=== PATIENT | female | born 1995 | race Caucasian/White ===

== ENCOUNTER 2019-05-10 13:15 | Emergency (ER) | payer BC ==
[2019-05-10 14:49] VITALS: BP 123/65
--- NOTE | 2019-05-10 15:11 | UC ---
Throat Pain/Nasal Addy HPI - HPI Summary HPI Summary: 23-year-old woman comes in with a chief complaint of 3 days of sinusitis symptoms. She's had some rhinorrhea and sinus pressure. Also feels like her ears are popping. She has used [id number]-[id number] oxymetazoline which did help some. No fevers or chills. Minimal sore throat. No cough or chest congestion. - History of Current Complaint Chief Complaint: UCRespiratory Stated Complaint: CONGESTION FEVER EARS Time Seen by Provider: 05/10/19 14:49 Hx Last Menstrual Period: uses depo, does not have reg periods. Pain Intensity: 0 - Allergies/Home Medications Allergies/Adverse Reactions: Allergies Allergy/AdvReac Type Severity Reaction Status Date / Time No Known Allergies Allergy Verified 05/10/19 14:41 PMH/Surg Hx/FS Hx/Imm Hx Previously Healthy: Yes - Surgical History Surgical History: Yes Surgery Procedure, Year, and Place: bilat inguinal hernia repair as a child. tosillectomy age 20. wisdom teeth extractions - Family History Known Family History: Positive: None - Social History Alcohol Use: Occasionally Substance Use Type: None Smoking Status (MU): Never Smoked Tobacco Have You Smoked in the Last Year: No Review of Systems All Other Systems Reviewed And Are Negative: Yes Constitutional: Positive: Other - see hpi Skin: Positive: Negative Eyes: Positive: Negative ENT: Positive: Nasal Discharge, Sinus Congestion, Sinus Pain/Tenderness Respiratory: Positive: Negative Cardiovascular: Positive: Negative Gastrointestinal: Positive: Negative Motor: Positive: Negative Neurovascular: Positive: Negative Musculoskeletal: Positive: Negative Neurological/Mental Status: Positive: Negative Psychological: Positive: Negative Is Patient Immunocompromised?: No Physical Exam Triage Information Reviewed: Yes Appearance: Well-Appearing, No Pain Distress, Well-Nourished Vital Signs: Initial Vital Signs Temp 99.4 F 05/10/19 14:42 Pulse 115 05/10/19 14:42 Resp 16 05/10/19 14:42 BP 123/65 05/10/19 14:42 Pulse Ox 99 05/10/19 14:42 Vital Signs Reviewed: Yes Eye Exam: Normal Eyes: Positive: Conjunctiva Clear ENT: Positive: Pharynx normal, Nasal congestion, Nasal drainage Neck: Positive: Supple Respiratory: Positive: Lungs clear, Normal breath sounds, No respiratory distress Cardiovascular: Positive: RRR Musculoskeletal: Positive: Strength Intact, ROM Intact Neurological: Positive: Alert, Muscle Tone Normal Psychological: Positive: Age Appropriate Behavior Skin Exam: Normal Throat Pain/Nasal Course/Dx - Course Course Of Treatment: DISCUSSED VIRAL VERSES BACTERIAL INFECTIONS AND THE ROLE OF ANTIBIOTICS. THE PATIENT PREFERS TO BE ON ANTIBIOTICS AT THIS TIME. - Differential Dx/Diagnosis Provider Diagnosis: Sinusitis Discharge ED - Sign-Out/Discharge Documenting (check all that apply): Patient Departure All imaging exams completed and their final reports reviewed: No Studies - Discharge Plan Condition: Stable Disposition: HOME Prescriptions: Amoxicillin PO (*) [Amoxicillin 875 MG (*)] 875 mg PO BID #20 tab Fluticasone NASAL SPRAY 50MCG* [Flonase NASAL SPRAY 50MCG*] 2 spray BOTH NARES DAILY #1 btl Patient Education Materials: Sinusitis (ED) Referrals: Emery Real DO [Primary Care Provider] - Additional Instructions: FOLLOW UP WITH YOUR DOCTOR IF NOT COMPLETELY IMPROVED. Increase your water intake. Stay well-hydrated. You can use steam to help loosen your sinus secretions. Stop using the oxymetazoline. You can use salt water saline nasal spray [id number]. Use the steroid nasal spray once a day as directed. You can also use an [id number] antihistamine such as Claritin. GET REEVALUATED SOONER IF NOT IMPROVED OR WORSE OR ANY QUESTIONS OR CONCERNS. - Billing Disposition and Condition Condition: STABLE Disposition: Home
== END 2019-05-10 15:17 | disposition home or self-care (01) ==
LOC: UCCORT 13:15
DX: J32.9 Chronic sinusitis, unspecified (principal)
CPT/HCPCS: 99202; G0463